=== PATIENT | female | born 1935 | race Caucasian/White ===

== ENCOUNTER 2017-09-26 10:28 | Day surgery (SDC) | payer MEDICARE ==
[2017-09-23 09:07] VITALS: BMI 21.0
--- NOTE | 2017-09-25 21:30 | HP ---
DATE OF ADMISSION: 09/26/2017 SCHEDULED PROCEDURE: LeFort colpocleisis. INDICATION FOR PROCEDURE: Complete uterovaginal prolapse. HISTORY OF PRESENT ILLNESS: Ms. Joe is an 81-year-old, G1, P0 who was referred by Dr. Gladys valencia for LeFort colpocleisis. The patient has advanced dementia and was uncooperative with the exam ; however, Dr. Man's [facility] referral and assessment notes were complete and consistent with thir d-degree uterine prolapse. Family strongly desires surgical management as the patient's uncooperativ e nature and current hygienic state makes use of pessary undesirable. OBSTETRIC AND GYNECOLOGIC HISTORY: x1. PAST MEDICAL HISTORY: Depression, advanced age, mild dementia. PAST SURGICAL HISTORY: Right hip. ALLERGIES: Denies. MEDICATIONS: MiraLax, citalopram, MetroGel, quetiapine, and triamcinolone. SOCIAL HISTORY: Denies tobacco, alcohol, or drug abuse. FAMILY HISTORY: Noncontributory. REVIEW OF SYSTEMS: Noncontributory. PHYSICAL EXAMINATION: GENERAL: Thin elderly female, 5 feet 4 inches, 140. VITAL SIGNS: Blood pressure 110/62. HEENT: Within normal limits. LUNGS: Clear to auscultation bilaterally. HEART: Regular rhythm. ABDOMEN: Soft and nontender. PELVIC: Deferred. EXTREMITIES: Without clubbing, cyanosis, or edema. IMPRESSION: Status post failed pessary with Dr. Gladys Man; elderly uncooperative female for LeFort colpocleisis with third-degree uterine prolapse. We will administer appropriate antibiotic an d DVT prophylaxis and perform aforementioned surgery. Family understands risks and benefits of proce dure including bleeding, infection, urinary retention, and persistence of prolapse.
[2017-09-26 11:20] LABS: Hemoglobin 12.3 g/dL (12.0-16.0); Mean Corpuscular Hemoglobin 31.3 pg (27.0-31.0); Mean Corpuscular Volume 94.9 fl (81.0-99.0); Mean Platelet Volume 6.3 fL (7.4-10.4); Platelet Count 246 thou/uL (130-400); RBC Distribution Width 12.8 % (11.5-14.5); Red Blood Cell (RBC) Count 3.92 mill/uL (4.20-5.40); White Blood Cell (WBC) Count 3.8 thou/uL (4.8-10.8)
[2017-09-26] MEDS ORDERED: CEFAZOLIN/Water 2 GM/20 ML SYRINGE ONE (11:29)
[2017-09-26] MEDS ORDERED: Lidocaine 1% w/Epinephrine 1:200K 30 ML VIAL ONE (11:56)
[2017-09-26] MEDS ORDERED: Fentanyl 100 MCG/2 ML VIAL ONE (12:06)
[2017-09-26] MEDS ORDERED: Ondansetron HCl/PF 4 MG/2 ML Vial ONE ×2 (13:09→16:33)
[2017-09-26 13:28] LABS: Bilirubin Negative (Negative); Blood, Urine Negative (Negative); Clarity CLOUDY (Clear); Glucose, Urine (Dipstick) Negative (Negative); Leukocyte Small (Negative); Nitrite Negative (Negative); Protein, Urine (Dipstick) Trace mg/dL (Neg-Trace); Specific Gravity, Urine 1.019 (1.002-1.036); pH, Urine 8.5 (5.0-9.0)
[2017-09-26 13:35] LABS: Bacteria/HPF None Seen HPF (None Seen); Hyaline Casts/LPF 0-3 HYALINE CAST LPF (0-3 Hyaline); RBC/HPF 0-3 HPF (0-3); Squamous Epithelial 0-3 HPF (0-3)
--- NOTE | 2017-09-26 13:53 | OP ---
DATE OF PROCEDURE: 09/26/2017 PREOPERATIVE DIAGNOSES: Uterovaginal prolapse, dementia. POSTOPERATIVE DIAGNOSES: Uterovaginal prolapse, dementia. PROCEDURE: LeFort colpocleisis. SURGEON: Marcello Mayo M.D. SEWER BUILDER: Gardenia Michaud M.D. ANESTHESIA: General endotracheal. ESTIMATED BLOOD LOSS: 150 mL. MEDICATIONS: Two grams Ancef preincision. DVT PROPHYLAXIS: SCDs. OPERATIVE FINDINGS: 1. Uterovaginal prolapse with traction down to just beyond the level of the introitus. 2. A healing vaginal mucosa, status post previous pessary placement. 3. Hemostasis. Correct counts, nonbloody urine at the end of the procedure. DISPOSITION: To the recovery room in good condition. DESCRIPTION OF OPERATIVE PROCEDURE: The patient had been taken to the operating room, noted to have early precursory to a decubitus and with appropriate padding applied. She was given general endotrac heal intubation and placed in dorsal lithotomy in Moreno stirrups. Minimal rotation was allowed becau se of the patient's previous hip pinning. Sharif catheter was placed, cloudy urine was noted which wa s sent for culture. Findings as noted in the operative findings were noted. Of note, the patient's genital hiatus was not terribly wide and her prolapse was not as active as it was previously secondar y to her decreased activity level from her hip fracture. The cervix was grasped with an Allis and wa s noted to descend to outside the introitus. Lidocaine with epinephrine and hydrodissection with nor mal saline was carried out anteriorly and posteriorly and an approximately 2 x 4 cm right angle of va ginal mucosa was excised both anteriorly and posteriorly dissecting the vesicovaginal fascia as well as the rectovaginal fascia off of the vaginal mucosa wedged out from just above the level of the cerv ix to close to the level of the perineum on each side. After this was done, tunnels were created rhonda n the side using horizontal mattress sutures of 0 Vicryl to allow drainage from any postmenopausal bl eeding that might occur. After this was done, a running continuous 0 Vicryl suture was used to reef together the rectovaginal and vesicovaginal fascia anteriorly and posteriorly starting at the level o f the cervix and working a way outwards towards the level of the perineal body. This was carried thr oughout without any evidence of injury to the bowel or bladder noted. Once complete obliteration of the potential space was achieved. The vaginal mucosa from the termination of the tunnels was closed with a running locking stitch from the patient's left back to right. Good hemostasis was noted. Cou nts were correct. Rectovaginal exam confirmed no injury to the rectum and the urine was noted to be nonbloody. Counts were correct. Tunnels were noted to be preserved bilaterally. No significant ble eding was noted. The patient was awakened, extubated, and taken to the recovery room in good conditi on. Sharif catheter will be left in place until tomorrow morning. The patient is incontinent of both stool and urine and will be placed in adult diapers and discharged to [facility] for senior shankar drummond on postop day #1,
[2017-09-26] MEDS ORDERED: Ondansetron HCl/PF 4 MG/2 ML Vial IVP PRN (15:33)
[2017-09-26] MEDS ORDERED: Loperamide HCl 2 MG CAP PO PRN (15:33)
[2017-09-26] MEDS ORDERED: Acetaminophen 325 MG TAB PO PRN (15:33)
[2017-09-26] MEDS ORDERED: ePHEDrine/0.9% NaCl/PF SYRINGE 50 mg/10 ml ONE (16:33)
[2017-09-26] MEDS ORDERED: PROPOFOL 200 MG/20 ML VIAL ONE (16:33)
[2017-09-26] MEDS ORDERED: Glycopyrrolate 0.2 MG/ML 5 ML SYRINGE ONE (16:33)
[2017-09-26] MEDS ORDERED: Dexamethasone 20 MG/5 ML VIAL ONE (16:33)
[2017-09-26] MEDS ORDERED: Lidocaine 1% PF 5 ML VIAL ONE (16:33)
[2017-09-26] MEDS: Morphine 2 MG/ML SYRINGE SLOW IVP PRN ×2 (16:56→20:49)
[2017-09-26] MEDS: Sodium Chloride 0.9% 1,000 ML IV SCH (16:57)
[2017-09-26] MEDS ORDERED: Morphine 2 MG/ML SYRINGE SLOW IVP PRN (17:00)
--- NOTE | 2017-09-26 21:02 | EKG ---
Test Reason : PREOP Blood Pressure : / mmHG Vent. Rate : 079 BPM Atrial Rate : 079 BPM P-R Int : 170 ms QRS Dur : 086 ms QT Int : 410 ms P-R-T Axes : 073 -29 047 degrees QTc Int : 470 ms Normal sinus rhythm Normal ECG No previous ECGs available Confirmed by OBINNA AREVALO ([id number]) on 09/26/2017 9:02:06 PM Referred By: YAIR Confirmed By:OBINNA AREVALO
[2017-09-27] MEDS: Morphine 2 MG/ML SYRINGE SLOW IVP PRN (03:22)
[2017-09-27] MEDS: Sodium Chloride 0.9% 1,000 ML IV SCH (03:25)
[2017-09-27 06:13] LABS: Hemoglobin 10.1 g/dL (12.0-16.0); Mean Corpuscular HGB CONC 33.1 g/dL (32.0-36.0); Mean Corpuscular Hemoglobin 31.5 pg (27.0-31.0); Mean Corpuscular Volume 95.2 fl (81.0-99.0); Mean Platelet Volume 6.4 fL (7.4-10.4); Platelet Count 189 thou/uL (130-400); RBC Distribution Width 12.8 % (11.5-14.5); Red Blood Cell (RBC) Count 3.21 mill/uL (4.20-5.40); White Blood Cell (WBC) Count 5.9 thou/uL (4.8-10.8)
[2017-09-27] MEDS ORDERED: CEFAZOLIN 1 GM in Sodium Chloride 0.9% 100 ML IVPB STA (06:43)
[2017-09-27] MEDS ORDERED: CEFAZOLIN 1 GM, Syringe 2.5 ML in Sterile Water 7.5 ML SLOW IVP SCH (07:00)
--- NOTE | 2017-09-27 07:22 | DIS ---
ADMITTING DIAGNOSES: Compete uterovaginal prolapse. IN-HOSPITAL PROCEDURE: LeFort colpocleisis. HOSPITAL COURSE: Ms. Joe was admitted on 09/26/2017 at approximately 10:30, discharged on 09/28/19 18 at approximately 0900. The patient underwent the aforementioned procedure with blood loss of less than 100 mL. Of note, the patient was noted to have cloudy urine upon admission with positive leuk ocyte esterase. Urine culture is pending. She also had an early stage I decubitus that has healed u p from higher stage post-hip surgery. She underwent the aforementioned procedure and the indwelling catheter was left in until postoperative day #1. She received a second dose of IV antibiotics early postoperative day #1 secondary to poor perineal hygiene associated with incontinence of both stool an d bladder. VITAL SIGNS: T-max 99.0, temperature now 99.0, pulse 67, blood pressure 127/60, respirations 16, O2 sats 97%. She was titrated on nasal cannula to this level of 92 or above with decrease to 89% while sleeping. Urine output was 1000 mL postoperatively up until 0700 today. The patient reports good pain control. PHYSICAL EXAMINATION: GENERAL: Elderly white female, not oriented to time, date or location which is her baseline preopera tively. She reports no significant pain. ABDOMEN: Her abdomen is soft and nontender, without rebound or guarding. Perineum is dry at this ti me. She has a small amount of serosanguineous fluid noted on pad earlier in the p.m. shift, but none at the end of shift. EXTREMITIES: Without clubbing, cyanosis or edema. : Urine is clear. LABORATORY: Hematocrit is 36% with a white count of 5.9 and a normal platelet count. Urine culture pending. IMPRESSION: Elderly white female, bedridden, status post LeFort colpocleisis for uterovaginal prolap se. PLAN: Discharge to [facility]. Resume all preoperative medications. Follow up at [facility] in 4 weeks.
[2017-09-27] MEDS ORDERED: Prevnar 13-Val Conj/PF 0.5 ML SYRINGE IM ONE (09:00)
[2017-09-27] MEDS ORDERED: Ergocalciferol 1.25 MG(50,000 UNITS) CAP PO SCH (09:00)
[2017-09-27] MEDS ORDERED: Citalopram 20 MG TAB PO SCH (09:00)
[2017-09-27 09:40] VITALS: BP 145/71
[2017-09-27 11:43] VITALS: TEMP 98.1
== END 2017-09-27 12:36 ==
LOC: SDC 10:28 → ONC 13:38 → SDC 09-27 12:36
PROVIDERS: ATTEND Obstetrics & Gynecology
PROC: 0ULG7ZZ Occlusion of Vagina, Via Natural or Artificial Opening (ICD-10-PCS; principal; 2017-09-26)
DX: N81.3 Complete uterovaginal prolapse (principal); F03.90 Unspecified dementia, unspecified severity, without behavioral disturbance, psychotic disturbance, mood disturbance, and anxiety; F32.9 Major depressive disorder, single episode, unspecified; Z79.899 Other long term (current) drug therapy
CPT/HCPCS: 57120; 81001; 85027; 86850; 86900; 86901; 87086; 88305; 90670; 93005; G0009; 36415; 90471; 93010; A4216; J0690; J1100; J2001; J2270; J2405; J2704; J3010; J3370